=== PATIENT | male | born 1995 | race Caucasian/White ===

== ENCOUNTER 2016-10-10 19:32 | Emergency (ER) | payer OTHER ==
[2016-10-10 19:43] VITALS: TEMP 98.8
--- NOTE | 2016-10-10 19:57 | CPEKG ---
Heart Rate: 91 RR Interval: 659 P-R Interval: 148 QRSD Interval: 90 QT Interval: 344 QTC Interval: 424 P Ferdinand: 54 QRS Ferdinand: 85 T Wave Ferdinand: 30 EKG Severity - BORDERLINE ECG - EKG Impression: SINUS RHYTHM EKG Impression: INFERIOR Q WAVES, PROBABLY NORMAL VARIATION Electronically Signed By: Kirsten Sarah 10-Oct-2016 21:03:44
--- NOTE | 2016-10-10 20:06 | EDPHY ---
H & P Stated Complaint: diffuse chest discomfort, SOB x 2 weeks Source: Patient Exam Limitations: No limitations - Personal History Current Tetanus/Diphtheria Vaccine: Yes - Medical/Surgical History Hx Asthma: No Hx Chronic Respiratory Disease: No Hx Diabetes: No Hx Cardiac Disease: No Hx Renal Disease: No Hx Cirrhosis: No Hx Alcoholism: No Hx HIV/AIDS: No Hx Splenectomy or Spleen Trauma: No Other PMH: Denies - Social History Smoking Status: Never smoked Time Seen by Provider: 10/10/16 19:58 HPI/ROS: CHIEF COMPLAINT: Chest discomfort, cough HISTORY OF PRESENT ILLNESS: Patient complains of 2 weeks history of chest discomfort and cough. He reports congestion of his chest. Recently moved here from [place]. Symptoms have been mild to moderate. They are constant duration. No actual chest pain or exertional pain. Cough is somewhat productive. No fever. No runny nose. Some shortness of breath with. No erythema, edema or pain of the extremities. Does not smoke cigarettes but does smoke marijuana. No other associated complaints or modifying factors. REVIEW OF SYSTEMS: Ten systems reviewed and are negative unless otherwise noted in the HPI PAST MEDICAL HISTORY: Denies any medical history SOCIAL HISTORY: Endorses marijuana use. No cigarettes. Occasional alcohol. Recently moved from [place] FAMILY HISTORY: Noncontributory EXAMINATION General Appearance: Alert, no distress Head: normocephalic, atraumatic Eyes: Pupils equal and round, no conjunctival pallor or injection ENT, Mouth: Mucous membranes moist. Airway widely patent. Neck: Normal inspection, supple, non-tender Respiratory: Moderate wheezing throughout. Mild rhonchi. No consolidation or diminishment. No retractions. No distress. Cardiovascular: Regular rate and rhythm. No murmur. Pulses intact distally. Gastrointestinal: Abdomen is soft and nontender Back: non-tender, no bony abnormalities Neurological: A&O, nonfocal, normal gait Skin: Warm and dry, no rash Extremities: Nontender, no pedal edema Psychiatric: Mood and affect normal DIFFERENTIAL DIAGNOSES: Including but not limited to pneumonia, bronchitis, asthma, PE, pleurisy, pericarditis MDM: 8:10 p.m. Cough, congestion and chest pressure. Examination reveals wheezing and evidence of bronchitis versus pneumonia. No chest pain. No exertional pain. No lower extremity or upper extremity erythema edema or pain. I have ordered a DuoNeb and a chest x-ray. EKG is unremarkable. Vital signs are stable within normal limits. 8:50 p.m. I have re-evaluated the patient. He is feeling significantly better after the DuoNeb treatment. Chest x-ray reveals bronchitis with no other significant findings as interpreted by me without the aid of the radiologist. Vital signs remained stable. He has no chest pain at this time. He feels much better with the breathing treatment and feels this is similar to previous incidence of cough and congestion. I will treat him with Zithromax given the duration of the symptoms. Additional syndrome with albuterol inhaler. He is to follow up with primary care physician. Return to the emergency department in 2 days if no improvement or sooner for any worsening symptoms, fever, chest pain at rest. He is comfortable with this plan and discharged home stable condition PERC Criteria: Age >50: No HR >= 100: No RA Sat <95%: No. First reading 91%, subsequent above 95% Unilateral swelling: No Hemoptysis: No Recent surgery or trauma: No EKG Interpretation: Dr. Sarah No acute ischemia SUPERVISION: Patient was evaluated in conjunction with the supervising physician. Please see their note for details. (Deshawn Mi) Constitutional: Initial Vital Signs Temperature (C) 37.1 C 10/10/16 19:40 Heart Rate 93 10/10/16 19:40 Respiratory Rate 18 10/10/16 19:40 Blood Pressure 113/72 10/10/16 19:40 O2 Sat (%) 91 L 10/10/16 19:40 O2 Delivery Mode Room Air Allergies/Adverse Reactions: No Known Allergies Allergy (Unverified 10/10/16 19:43) Home Medications: Medication Instructions Recorded Azithromycin [Zithromax] 250 mg PO DAILY #4 tab 10/10/16 Medical Decision Making - Diagnostics EKG Interpretation: 12 lead EKG is interpreted in Trace master View by emergency department physician. (Kirsten Sarah) ED Course/Re-evaluation: I have evaluated and participated in the management of this patient. My co- signature indicates that I have reviewed this chart and that I agree with the findings and the plan of care as documented. My personal history and physical findings include: Patient with upper respiratory infection and subsequent shortness of breath. He tells me that he has had similar problems in the past with chest colds and wheezing. The time of my exam he is taking nebulizer treatment. He has good air exchange and wheezing has subsided. He is able to speak in full sentences. He denies chest pain. Heart is regular. I reviewed his EKG. I reviewed the chest x-ray, which shows no acute pulmonary disease. (Kirsten Sarah) - Data Points Medications Given: Discontinued Medications Albuterol Sulfate (Proventil Inh Prepack) 1 mdi TAKEHOME EDNOW ONE Stop: 10/10/16 20:49 Last Admin: 10/10/16 21:01 Dose: 1 mdi Albuterol/Ipratropium (Duoneb) 3 ml IH EDNOW ONE Stop: 10/10/16 20:08 Last Admin: 10/10/16 20:10 Dose: 3 ml Azithromycin (Zithromax) 500 mg PO EDNOW ONE PRN Reason: Protocol Stop: 10/10/16 20:49 Last Admin: 10/10/16 21:00 Dose: 500 mg Departure - Departure Disposition: Home, Routine, Self-Care Clinical Impression: Bronchitis, Cough Condition: Good Instructions: Albuterol (By breathing), Azithromycin (By mouth), Acute Bronchitis (ED), Wheezing (ED) Additional Instructions: 1. Albuterol inhaler 1-2 puffs every 2-4 hours as needed for shortness of breath or wheezing 2. Zithromax prescription, 1 pill by mouth once daily for the next 4 days starting tomorrow, October 11 3. Follow up with primary care physician 4. Return to the emergency department if no improvement in 48 hours, fever, chest pain at rest, worsening symptoms Referrals: NONE *PRIMARY CARE P,. [Primary Care Provider] - As per Instructions Quita Paul DO [Doctor of Osteopathy] - As per Instructions Prescriptions: Azithromycin [Zithromax] 250 mg PO DAILY #4 tab
[2016-10-10] MEDS ORDERED: IPRATROPIUM/ALBUTEROL 3 ML DEYVIAL IH ONE (20:07)
[2016-10-10] MEDS ORDERED: AZITHROMYCIN 250 MG TAB PO ONE (20:48)
[2016-10-10] MEDS ORDERED: ALBUTEROL INH PREPACK MDI TAKEHOME ONE (20:48)
[2016-10-10 21:05] VITALS: BP 115/76; PULSE 85; RESP 20; O2SAT 95
== END 2016-10-10 21:05 | disposition home or self-care (01) ==
DX: J20.9 Acute bronchitis, unspecified (principal)